=== PATIENT | female | born 1980 | race Caucasian/White ===

== ENCOUNTER 2017-04-02 10:10 | Inpatient (IN) | payer OTHER ==
[~2017-04-02 10:10] MED LIST: DEXTROSE 5%-LACTATED RINGERS 1,000 ML IV SCH
[2017-04-02 10:41] VITALS: BMI 25.2
[2017-04-02 11:30] LABS: BASOPHIL 0.2 % (0-2.0); EOSINOPHIL 2.3 % (0-4.5); MCH 26.1 pg (25.7-33.7); MCHC 33.3 g/dl (32.0-36.0); MEAN CELL VOLUME 78.5 fl (80-96); MEAN PLT VOLUME 10.7 fl (7.5-11.1); NEUTROPHILS 71.3 % (42.8-82.8); PLATELET COUNT 142 K/MM3 (134-434); RDW 14.1 % (11.6-15.6); WHITE BLOOD COUNT 7.8 K/mm3 (4.0-10.0)
[2017-04-02 11:48] LABS: INR 0.97 (0.82-1.09); PROTHROMBIN TIME (PATIENT) 10.7 SEC (9.98-11.88)
[2017-04-02 11:51] LABS: ACTIVATED PTT 27.3 SECONDS (26.9-34.4)
[2017-04-02 11:54] LABS: ANION GAP 7 (8-16); CALCIUM 8.4 mg/dL (8.5-10.1); CO2 21 mmol/L (21-32); CREATININE 0.5 mg/dL (0.55-1.02); GLUCOSE,RANDOM 95 mg/dL (74-106)
--- NOTE | 2017-04-02 12:22 | PN ---
Progress Note (short form) - Note Progress Note: cx 2 cm 50 vx -3 mi, fhr cat 1, cervidil rba discussed , cervidil inserted
[2017-04-02] MEDS ORDERED: PROMETHAZINE HCL 25 MG/1 ML VIAL IVPUSH ONE (12:23)
[2017-04-02] MEDS ORDERED: BUTORPHANOL TARTRATE 1 MG/ML VIAL IVPUSH PRN (12:23)
[2017-04-02] MEDS ORDERED: DINOPROSTONE 10 MG VAGINAL SUPPOSITORY VG ONE (12:24)
[2017-04-02] MEDS ORDERED: DEXTROSE 5%-LACTATED RINGERS 1,000 ML IV SCH ×2 (12:30→22:15)
--- NOTE | 2017-04-02 16:05 | HP ---
Past Medical History - Primary Care Physician PCP:: Matt Jay - Admission Chief Complaint: 40 weeks, AMA, multiparity,for cervidil induction History of Present Illness: 36 yo f 40.1 weeks admitted for cervidil induction , cx 2 cm 50 vx -3 mi, fhr cat 1, no contraction History Source: Patient Limitations to Obtaining History: No Limitations - Past Medical History ...: 4 ...Para: 3 ...Term: 3 ...: 0 ...Spon : 0 ...Induced : 0 ...Multiple Gestation: 0 ...LMP: 06/26/16 ... Weeks Gestation by Dates: 40.0 ...EDC by Dates: 04/02/17 ...EDC by Sono: 04/02/17 - Past Surgical History Hx Myomectomy: No Hx Transabdominal Cerclage: No - Smoking History Smoking history: Never smoked Have you smoked in the past 12 months: No - Alcohol/Substance Use Hx Alcohol Use: No - Social History Usual Living Arrangement: Yes: With Spouse History of Recent Travel: No Home Medications - Allergies Allergies/Adverse Reactions: Allergies Allergy/AdvReac Type Severity Reaction Status Date / Time No Known Allergies Allergy Verified 04/02/17 10:41 - Home Medications Home Medications: Ambulatory Orders Ferrous Sulfate 325 mg PO DAILY 04/02/17 Pnv95/Ferrous Fumarate/FA [ Vitamin Tablet] 1 each PO DAILY 04/02/17 Review of Systems - Review of Systems Constitutional: reports: No Symptoms Eyes: reports: No Symptoms HENT: reports: No Symptoms Neck: reports: No Symptoms Cardiovascular: reports: No Symptoms Respiratory: reports: No Symptoms Gastrointestinal: reports: No Symptoms Genitourinary: reports: No Symptoms Breasts: reports: No Symptoms Reported Musculoskeletal: reports: No Symptoms Neurological: reports: No Symptoms Endocrine: reports: No Symptoms Hematology/Lymphatic: reports: No Symptoms Psychiatric: reports: No Symptoms Physical Exam - Maternity Vital Signs: Vital Signs Temperature 97.6 F 04/02/17 10:10 Pulse Rate 18 L 04/02/17 10:10 Respiratory Rate 18 04/02/17 10:10 Blood Pressure 128/88 04/02/17 14:00 O2 Sat by Pulse Oximetry (%) Constitutional: Yes: Well Nourished, No Distress, Calm Eyes: Yes: WNL, Conjunctiva Clear, EOM Intact HENT: Yes: WNL, Atraumatic, Normocephalic Neck: Yes: WNL, Supple, Trachea Midline Cardiovascular: Yes: WNL, Regular Rate and Rhythm Breast(s): Yes: WNL - Abdominal Exam/OB Fundal Height: 40 Number of Fetuses: Single Presentation: Vertex Contractions: No Intensity: Unaware Monitor Mode: External Heart Rate Location: [facility] Category: I Accelerations: Uniform Decelerations: None - Vaginal Exam/OB Vaginal Bleediing: No Speculum Exam: No Dilatation (cm): 2 cm Effacement (%): 50 Amniotic Membrane Status: Intact Presentation: Vertex/Position Station: -3 - Physical Exam Extremities: Yes: WNL Edema: Yes Edema: LLE: Trace, RLE: Trace Deep Tendon Reflex Grade: Normal +2 Psychiatric: Yes: WNL - Labs Lab Results: CBC, BMP 04/02/17 10:58 04/02/17 10:58 Hemorrhage Risk Assessment - Risk Factors Medium Risk Factors: Yes: Multiple gestation Risk Score: 1 Risk Level: Medium Risk Assessment/Plan 40 weeks, ama, multiparty. favorable cx advised induction , rba discussed
--- NOTE | 2017-04-02 16:06 | PN ---
Progress Note (short form) - Note Progress Note: cx 6 cm 80 vx -1 membrane bulging, fhr cat 1, cervidil removed , arom ,clear.
[2017-04-02] MEDS ORDERED: BUTORPHANOL TARTRATE 1 MG/ML VIAL IVPUSH ONE (18:30)
--- NOTE | 2017-04-02 19:23 | PN ---
Progress Note (short form) - Note Progress Note: cx 9cm vx -1 head compression , fhr cat 2 will observe
--- NOTE | 2017-04-02 21:16 | PN ---
Progress Note (short form) - Note Progress Note: 820 cx full 100 vx -1fhr cat 1 contraction not effective for descent advised trial of pitocin
--- NOTE | 2017-04-02 21:17 | PN ---
Progress Note (short form) - Note Progress Note: cx full no descent with pushing , fhr cat 2 vx -1 op heat decel with pushing advised c/s, rba discussed
[2017-04-02] MEDS ORDERED: ONDANSETRON 4 MG/2 ML VIAL IVPB PRN (21:41)
[2017-04-02] MEDS ORDERED: IBUPROFEN 600 MG TABLET (FP) PO PRN (21:41)
[2017-04-02] MEDS ORDERED: oxyCODONE HCL 5 MG TABLET PO PRN ×2 (22:13)
[2017-04-02] MEDS ORDERED: diphenhydrAMINE HCL 25 MG CAPSULE (FP) PO PRN (22:13)
[2017-04-02] MEDS ORDERED: METHYLERGONOVINE MALEATE 0.2 MG/1 ML AMP IM PRN (22:13)
[2017-04-02] MEDS ORDERED: BENZOCAINE 20% 57 GM BOTTLE TP PRN (22:13)
[2017-04-02] MEDS ORDERED: WITCH HAZEL 50% (TUCKS) 40 PAD/JAR PAD TP PRN (22:13)
[2017-04-02] MEDS ORDERED: BENZOCAINE 28 GM HEMORRHOIDAL OINTMENT PR PRN (22:13)
[2017-04-02] MEDS ORDERED: IBUPROFEN 800 MG/8 ML IJ IVPB PRN (22:13)
[2017-04-02] MEDS ORDERED: OXYTOCIN 20 UNITS in 0.9% NS 1,000 ML IV SCH (22:15)
[2017-04-02] MEDS ORDERED: ACETAMINOPHEN 325 MG TABLET (FP) PO PRN (22:16)
[2017-04-02 22:34] LABS: ARTERIAL BLD GAS O2 SATURATION 39.5 % (90-98.9); ARTERIAL BLOOD GAS HCO3 21.4 meq/L (22-26); ARTERIAL BLOOD GAS pH 7.33 (7.35-7.45)
[2017-04-02 22:35] LABS: ARTERIAL BLOOD GAS PO2 18.8 mmHg (80-100)
[2017-04-02 22:39] LABS: ARTERIAL BLOOD GAS BASE EXCESS -4.1 meq/l (-2-2); ARTERIAL BLOOD GAS HCO3 23.2 meq/L (22-26)
[2017-04-02 22:40] LABS: ARTERIAL BLOOD GAS pH 7.26 (7.35-7.45)
[2017-04-02 22:41] LABS: ARTERIAL BLOOD GAS PO2 14.4 mmHg (80-100)
[2017-04-03] MEDS ORDERED: DEXTROSE 5%-WATER - 50 ML IVPB ONE ×2 (06:12→14:13)
[2017-04-03] MEDS ORDERED: ceFAZolin SODIUM 1 GM VIAL ONE ×2 (06:12→14:13)
[2017-04-03] MEDS: CEFAZOLIN 1 GM in DEXTROSE 5%-WATER - 50 ML IVPB SCH ×2 (06:17→14:36)
[2017-04-03 08:43] LABS: BASOPHIL 0.3 % (0-2.0); EOSINOPHIL 0.3 % (0-4.5); MCH 26.3 pg (25.7-33.7); MCHC 33.3 g/dl (32.0-36.0); MEAN CELL VOLUME 79.2 fl (80-96); MEAN PLT VOLUME 10.6 fl (7.5-11.1); NEUTROPHILS 75.1 % (42.8-82.8); PLATELET COUNT 120 K/MM3 (134-434); RDW 14.6 % (11.6-15.6); WHITE BLOOD COUNT 10.6 K/mm3 (4.0-10.0)
--- NOTE | 2017-04-03 09:50 | PN ---
Progress Note, Physician Chief Complaint: Pt. still has chiu, not ambulated yet, pain controlled, no anesthesia complaints. - Current Medication List Current Medications: Active Medications Acetaminophen (Tylenol -) 650 mg PO Q4H PRN PRN Reason: FEVER OR PAIN Acetaminophen (Tylenol -) 650 mg PO Q6H PRN PRN Reason: FEVER OR PAIN Benzocaine (Americaine 20% [place] -) 1 spray TP PRN PRN PRN Reason: PAIN Bisacodyl (Dulcolax Suppository -) 10 mg AR PRN PRN PRN Reason: CONSTIPATION Diphenhydramine HCl (Benadryl Injection -) 25 mg IVPUSH Q4H PRN PRN Reason: Pruritis Last Admin: 04/03/17 03:21 Dose: 25 mg Diphenhydramine HCl (Benadryl -) 25 mg PO Q8H PRN PRN Reason: FOR ITCHING Diphtheria/Tetanus/Acell Pertussis (Boostrix -) 0.5 ml IM .ONCE ONE Stop: 04/04/17 10:01 Ferrous Sulfate (Feosol -) 325 mg PO DAILY [facility] Cefazolin Sodium 1 gm/ (Dextrose) 50 mls @ 100 mls/hr IVPB Q8H MARIEL Stop: 04/03/17 14:29 Last Admin: 04/03/17 06:17 Dose: 100 mls/hr Dextrose/Lactated Ringer's (D5-Lr -) 1,000 mls @ 125 mls/hr IV ASDIR [facility] Ibuprofen (Motrin -) 600 mg PO Q4H PRN PRN Reason: PAIN Ibuprofen (Caldolor Injection -) 800 mg IVPB Q6H PRN PRN Reason: PAIN Stop: 04/03/17 10:14 Methylergonovine Maleate (Methergine Injection -) 0.2 mg IM Q4H PRN PRN Reason: EXCESSIVE BLEEDING Oxycodone HCl (Roxicodone -) 5 mg PO Q4H PRN PRN Reason: PAIN LEVEL 1-5 Oxycodone HCl (Roxicodone -) 10 mg PO Q4H PRN PRN Reason: PAIN LEVEL 6-10 Multivit/Folic Acid/Iron ( Vitamins (Sjr) -) 1 tab PO DAILY [facility] Senna/Docusate Sodium (Pericolace -) 2 tablet PO HS PRN PRN Reason: CONSTIPATION Simethicone (Mylicon -) 80 mg PO Q4H PRN PRN Reason: GAS [place]/Glycerin (Tucks Pads -) 1 pad TP PRN PRN PRN Reason: PAIN - Objective Vital Signs: Vital Signs Temperature 98.3 F 04/03/17 06:00 Pulse Rate 80 04/03/17 06:00 Respiratory Rate 18 04/03/17 06:00 Blood Pressure 108/68 04/03/17 06:00 O2 Sat by Pulse Oximetry (%) 100 04/02/17 23:56 Constitutional: Yes: Well Nourished, No Distress, Calm Musculoskeletal: Yes: WNL Neurological: Yes: WNL, Alert, Oriented ...Motor Strength: WNL Labs: CBC, BMP 04/03/17 08:15 04/02/17 10:58 INR, PTT INR 0.97 (0.82-1.09) 04/02/17 10:58 Assessment/Plan POD#1 s/p under spinal with duramorph. Doing well. D/C from anesthesia care.
[2017-04-03] MEDS: FERROUS SO4 325 MG TABLET (FP) PO SCH (10:40)
[2017-04-03] MEDS: PRENATAL VITAMINS W/ FOLIC ACID TABLET (FP) PO SCH (10:40)
--- NOTE | 2017-04-03 14:00 | PN ---
Post Progress Note Post Day: 1 Type of Delivery: Primary C/S Vital Signs: Vital Signs Temperature 97.9 F 04/03/17 10:00 Pulse Rate 74 04/03/17 10:00 Respiratory Rate 18 04/03/17 12:00 Blood Pressure 101/64 04/03/17 10:00 O2 Sat by Pulse Oximetry (%) 100 04/02/17 23:56 Breast Exam: Yes: Soft Uterus: Yes: Fundus Firm Incision: Yes: Dressing dry and intact Abdomen/GI: Yes: Abdomen soft Lochia: Yes: Rubra Lochia, amount: Small Extremities: Yes: Calves non-tender Perineum: Yes: Intact - Labs Labs: CBC WBC 10.6 K/mm3 (4.0-10.0) H D 04/03/17 08:15 RBC 3.42 M/mm3 (3.60-5.2) L D 04/03/17 08:15 Hgb 9.0 GM/dL (10.7-15.3) L D 04/03/17 08:15 Hct 27.1 % (32.4-45.2) L D 04/03/17 08:15 MCV 79.2 fl (80-96) L 04/03/17 08:15 MCH 26.3 pg (25.7-33.7) 04/03/17 08:15 MCHC 33.3 g/dl (32.0-36.0) 04/03/17 08:15 RDW 14.6 % (11.6-15.6) 04/03/17 08:15 Plt Count 120 K/MM3 (134-434) L 04/03/17 08:15 MPV 10.6 fl (7.5-11.1) 04/03/17 08:15 Neutrophils % 75.1 % (42.8-82.8) 04/03/17 08:15 Lymphocytes % 16.7 % (8-40) 04/03/17 08:15 Monocytes % 7.6 % (3.8-10.2) 04/03/17 08:15 Eosinophils % 0.3 % (0-4.5) D 04/03/17 08:15 Basophils % 0.3 % (0-2.0) 04/03/17 08:15 Assessment/Plan as above reg diet oob continue care
[2017-04-03] MEDS: IBUPROFEN 600 MG TABLET (FP) PO PRN (14:41)
[2017-04-03] MEDS: SIMETHICONE 80 MG TAB.CHEW (FP) PO PRN (14:41)
[2017-04-03] MEDS: ACETAMINOPHEN 325 MG TABLET (FP) PO PRN (14:43)
[2017-04-03] MEDS ORDERED: BISACODYL 10 MG SUPP.RECT PR PRN (22:13)
[2017-04-04] MEDS: ACETAMINOPHEN 325 MG TABLET (FP) PO PRN ×4 (05:42→21:22)
[2017-04-04] MEDS: IBUPROFEN 600 MG TABLET (FP) PO PRN ×4 (05:43→21:22)
[2017-04-04] MEDS: SIMETHICONE 80 MG TAB.CHEW (FP) PO PRN ×3 (09:39→21:23)
[2017-04-04] MEDS: PRENATAL VITAMINS W/ FOLIC ACID TABLET (FP) PO SCH (09:39)
[2017-04-04] MEDS: FERROUS SO4 325 MG TABLET (FP) PO SCH (09:39)
[2017-04-04] MEDS ORDERED: DIPHTH,PERTUSS(ACELL),TET 0.5 ML DISP.SYRIN IM ONE (10:00)
[2017-04-04] MEDS ORDERED: FLU VACC QS2017-18 36MOS UP/PF 60 MCG/0.5 ML SYRINGE IM ONE (10:00)
[2017-04-04] MEDS: SENNOSIDES/DOCUSATE COMBO (SENNA PLUS) TABLET (UD) PO PRN (21:22)
[2017-04-05] MEDS: IBUPROFEN 600 MG TABLET (FP) PO PRN ×3 (04:34→20:54)
[2017-04-05] MEDS: SIMETHICONE 80 MG TAB.CHEW (FP) PO PRN ×3 (04:34→20:50)
[2017-04-05] MEDS: ACETAMINOPHEN 325 MG TABLET (FP) PO PRN ×3 (04:34→20:52)
--- NOTE | 2017-04-05 06:55 | PN ---
Post Progress Note Post Day: 3 Type of Delivery: Primary C/S Vital Signs: Vital Signs Temperature 98.9 F 04/04/17 22:00 Pulse Rate 92 H 04/04/17 22:00 Respiratory Rate 18 04/04/17 22:00 Blood Pressure 131/82 04/04/17 22:00 O2 Sat by Pulse Oximetry (%) 100 04/02/17 23:56 Uterus: Yes: Fundus Firm Incision: Yes: [place] intact Abdomen/GI: Yes: Abdomen soft Lochia: Yes: Rubra Lochia, amount: Small Perineum: Yes: Intact Activity: Ambulating - Labs Labs: CBC WBC 10.6 K/mm3 (4.0-10.0) H D 04/03/17 08:15 RBC 3.42 M/mm3 (3.60-5.2) L D 04/03/17 08:15 Hgb 9.0 GM/dL (10.7-15.3) L D 04/03/17 08:15 Hct 27.1 % (32.4-45.2) L D 04/03/17 08:15 MCV 79.2 fl (80-96) L 04/03/17 08:15 MCH 26.3 pg (25.7-33.7) 04/03/17 08:15 MCHC 33.3 g/dl (32.0-36.0) 04/03/17 08:15 RDW 14.6 % (11.6-15.6) 04/03/17 08:15 Plt Count 120 K/MM3 (134-434) L 04/03/17 08:15 MPV 10.6 fl (7.5-11.1) 04/03/17 08:15 Neutrophils % 75.1 % (42.8-82.8) 04/03/17 08:15 Lymphocytes % 16.7 % (8-40) 04/03/17 08:15 Monocytes % 7.6 % (3.8-10.2) 04/03/17 08:15 Eosinophils % 0.3 % (0-4.5) D 04/03/17 08:15 Basophils % 0.3 % (0-2.0) 04/03/17 08:15 Assessment/Plan as above oob reg diet pain meds
--- NOTE | 2017-04-05 06:56 | PN ---
Post Progress Note Post Day: 3 Type of Delivery: Primary C/S Vital Signs: Vital Signs Temperature 98.9 F 04/04/17 22:00 Pulse Rate 92 H 04/04/17 22:00 Respiratory Rate 18 04/04/17 22:00 Blood Pressure 131/82 04/04/17 22:00 O2 Sat by Pulse Oximetry (%) 100 04/02/17 23:56 Breast Exam: Yes: Soft Uterus: Yes: Fundus Firm Incision: Yes: [place] intact Abdomen/GI: Yes: Abdomen soft Lochia: Yes: Rubra Lochia, amount: Small Extremities: Yes: Calves non-tender Perineum: Yes: Intact Activity: Ambulating - Labs Labs: CBC WBC 10.6 K/mm3 (4.0-10.0) H D 04/03/17 08:15 RBC 3.42 M/mm3 (3.60-5.2) L D 04/03/17 08:15 Hgb 9.0 GM/dL (10.7-15.3) L D 04/03/17 08:15 Hct 27.1 % (32.4-45.2) L D 04/03/17 08:15 MCV 79.2 fl (80-96) L 04/03/17 08:15 MCH 26.3 pg (25.7-33.7) 04/03/17 08:15 MCHC 33.3 g/dl (32.0-36.0) 04/03/17 08:15 RDW 14.6 % (11.6-15.6) 04/03/17 08:15 Plt Count 120 K/MM3 (134-434) L 04/03/17 08:15 MPV 10.6 fl (7.5-11.1) 04/03/17 08:15 Neutrophils % 75.1 % (42.8-82.8) 04/03/17 08:15 Lymphocytes % 16.7 % (8-40) 04/03/17 08:15 Monocytes % 7.6 % (3.8-10.2) 04/03/17 08:15 Eosinophils % 0.3 % (0-4.5) D 04/03/17 08:15 Basophils % 0.3 % (0-2.0) 04/03/17 08:15 Assessment/Plan oob reg pain will dc home
[2017-04-05 07:14] LABS: BASOPHIL 0.5 % (0-2.0); EOSINOPHIL 5.2 % (0-4.5); MCH 25.9 pg (25.7-33.7); MCHC 32.4 g/dl (32.0-36.0); MEAN PLT VOLUME 10.1 fl (7.5-11.1); NEUTROPHILS 69.9 % (42.8-82.8); PLATELET COUNT 115 K/MM3 (134-434); RDW 14.6 % (11.6-15.6); WHITE BLOOD COUNT 7.8 K/mm3 (4.0-10.0)
[2017-04-05] MEDS: FERROUS SO4 325 MG TABLET (FP) PO SCH ×2 (09:44→10:58)
[2017-04-05] MEDS: PRENATAL VITAMINS W/ FOLIC ACID TABLET (FP) PO SCH (09:45)
[2017-04-05] MEDS: SENNOSIDES/DOCUSATE COMBO (SENNA PLUS) TABLET (UD) PO PRN (20:54)
[2017-04-06] MEDS: SIMETHICONE 80 MG TAB.CHEW (FP) PO PRN ×2 (00:51→06:16)
[2017-04-06] MEDS: ACETAMINOPHEN 325 MG TABLET (FP) PO PRN ×2 (00:52→06:17)
[2017-04-06] MEDS: IBUPROFEN 600 MG TABLET (FP) PO PRN ×2 (00:53→06:18)
--- NOTE | 2017-04-06 09:16 | DS ---
Physical Exam-HOME HEALTH CAREGIVER Vital Signs: Vital Signs Temperature 98.9 F 04/05/17 22:00 Pulse Rate 64 04/05/17 22:00 Respiratory Rate 18 04/05/17 22:00 Blood Pressure 139/85 04/05/17 22:00 O2 Sat by Pulse Oximetry (%) 100 04/02/17 23:56 Constitutional: Yes: Well Nourished Eyes: Yes: Conjunctiva Clear HENT: Yes: Atraumatic Neck: Yes: Supple, Trachea Midline Cardiovascular: Yes: Regular Rate and Rhythm Respiratory: Yes: Regular, CTA Bilaterally Gastrointestinal: Yes: Normal Bowel Sounds Pelvis: Yes: WNL External Genitalia: Yes: Normal Vaginal Exam: Yes: Normal Labs: CBC, BMP 04/05/17 06:50 04/02/17 10:58 Delivery - Delivery Type of Anesthesia: Spinal Episiotomy/Laceration: None EBL (cc): 500 Delivery, Single - Stages of Labor Date 1st Stage Initiatied: 04/02/17 Time 1st Stage Initiated: 17:35 Date of Delivery: 04/02/17 Time of Delivery: 21:39 Time Placenta Delivered: 21:40 - Condition of Hearing Aid Technician/Phototypesetting Equipment Monitor Present: No Gender: Male Weight: 7 lb 2 oz Position: OP Total Hours ROM (Hrs/Mins): 5 HOURS/39 MINUTES - 5 Minutes Total Score: 9 - Feeding Plan Initial Plan: Elected not to breastfeed exclusively throughout hospitalization Discharge Summary Reason For Visit: INDUCTION OF LABOR Procedures: Principal: Delivery by Hospital Course: Routine post op care Condition: Good - Instructions Diet, Activity, Other Instructions: Regular diet No driving, no lifting x 4 weeks F/U in clinic for jose de jesus removal Referrals: Matt Jay MD [Staff Physician] - Disposition: HOME - Home Medications Comprehensive Discharge Medication List: Ambulatory Orders Ferrous Sulfate 325 mg PO DAILY 04/02/17 Pnv95/Ferrous Fumarate/FA [ Vitamin Tablet] 1 each PO DAILY 04/02/17 Ibuprofen [Motrin -] 600 mg PO TID #21 tablet 04/05/17
--- NOTE | 2017-04-06 09:17 | OP ---
DATE OF OPERATION: 04/02/2017 PREOPERATIVE DIAGNOSES: , 40 weeks, Cervidil induction, failure of descent in second stage of labor, and nonreassuring heart rate. POSTOPERATIVE DIAGNOSES: , 40 weeks, Cervidil induction, failure of descent in second stage of labor, and nonreassuring heart rate. PROCEDURE: Primary low-segment transverse section. SURGEON: Matt Jay MD CHEMICAL MACHINE TENDER: Janet Mata MD ANESTHESIA: Spinal. ANESTHESIOLOGIST: Denver Montoya MD ESTIMATED BLOOD LOSS: 700 mL DESCRIPTION OF OPERATION: Patient was taken to the operating room. Under adequate spinal anesthesia, abdomen and perineum were prepped and draped. Pfannenstiel abdominal skin incision was made. Abdominal wall was cut layer by layer until peritoneum was exposed and incised. Upon entering the abdominal cavity, lower uterine segment was identified and uterovesical fold of peritoneum established. Bladder was pushed down, and then, a low transverse uterine incision was made. This incision extended laterally. Amniotic sac was entered, clear fluid. Head delivered from direct occiput posterior position. Nasopharynx was suctioned. Live baby was delivered without any difficulty. Placenta was delivered manually. Uterine cavity was cleaned of all remaining tissue. Uterine incision was closed in 2 layers, first layer with 0 Biosyn continuous suture, the second layer with 0 Biosyn imbricating the first layer. Bladder flap was closed with 0 Biosyn continuous suture. Both tubes and ovaries were checked, were normal. No active bleeding was seen. All the lap pads, sponge, and instrument counts were correct. Then, peritoneum was closed with 0 Biosyn continuous suture. Muscles were brought together with interrupted sutures of 0 Biosyn, and fascia was closed with 0 Biosyn continuous suture, subcutaneous fat with interrupted suture of 0 Biosyn, and the skin was closed with jose de jesus. Patient tolerated the procedure well, left the OR in good condition. Kishore [id number]
[2017-04-06] MEDS: FERROUS SO4 325 MG TABLET (FP) PO SCH (09:24)
[2017-04-06] MEDS: PRENATAL VITAMINS W/ FOLIC ACID TABLET (FP) PO SCH (09:24)
[2017-04-06 10:21] VITALS: PULSE 54; TEMP 98.1
[2017-04-06 10:52] VITALS: BP 146/87
--- NOTE | 2017-04-07 14:02 | PATH ---
Surgical Pathology Report Patient Name: MAINOR PHELAN Med. Rec. #: [id number] /Age/Gender: 1980 (Age: 36) / F Account: [id number] Location: [facility] OBS/DELIVERER FOOD Taken: 04/02/2017 Received: 04/05/2017 Reported: 04/07/2017 Physicians: Matt Jay M.D. Specimen(s) Received PLACENTA Clinical History 36-year-old female , failure to descend Final Diagnosis PLACENTA, DELIVERY: SMALL (374 gram) FOCALLY DISRUPTED THIRD TRIMESTER PLACENTA WITH THREE VESSEL UMBILICAL CORD AND UNREMARKABLE PLACENTAL MEMBRANES. Electronically Signed Bright Rubin M.D. Gross Description The specimen is received fresh labeled placenta and is a 374 gram, 15.0 x 15.0 x 2.5 cm. placenta with attached membranes and umbilical cord. The attached membranes are xiong, thick, opaque and insert marginally. The umbilical cord measures 21 cm. in length and averages 1.2 cm. in diameter. The cord inserts eccentrically, 2 cm. to the nearest margin. No true knots or strictures are identified. Cut surface of the umbilical cord reveals 3 vessels. The surface is colvin-blue with minimal fibrin deposition and appropriate caliber vessels. The maternal surface is red-brown with focal defects. Sectioning reveals a 1 cm in greatest dimension hemorrhagic lesion. The remaining placental parenchyma is red-brown and spongy. Blocking Machine Operator Second sections are submitted in 4 cassettes as follows: 1-membrane roll and umbilical cord; 2-lesion; 2-7-gtly-thickness sections of placenta. 04/06/2017 [facility]04/06/2017
== END 2017-04-06 11:10 | disposition home or self-care (01) | DRG 540 ==
LOC: JLDR 10:10 → J3W 04-03 00:30
PROVIDERS: ADMIT Obstetrics & Gynecology; ATTEND Obstetrics & Gynecology
PROC: 10D00Z1 Extraction of Products of Conception, Low, Open Approach (ICD-10-PCS; principal; 2017-04-02)
DX: O76 Abnormality in fetal heart rate and rhythm complicating labor and delivery (principal); O62.0 Primary inadequate contractions; O48.0 Post-term pregnancy; Z3A.40 40 weeks gestation of pregnancy; Z37.0 Single live birth
CPT/HCPCS: 36415; 36600; 80048; 82803; 85025; 85610; 85730; 86593; 86850; 86900; 86901; 88307-TC; 90686; 90715; G0008

== ENCOUNTER 2020-12-29 09:33 | Emergency (ER) | payer OTHER ==
[2020-12-29 09:40] VITALS: BP 161/90; PULSE 76; TEMP 98; BMI 24.7
[2020-12-29] MEDS ORDERED: KETOROLAC TROMETHAMINE 30 MG/1 ML VIAL IM ONE (10:17)
[2020-12-29] MEDS ORDERED: KETOROLAC TROMETHAMINE 30 MG/1 ML VIAL ONE (10:26)
== END 2020-12-29 11:15 | disposition home or self-care (01) ==
LOC: JERFT 09:33
PROC: 3E0233Z Introduction of Anti-inflammatory into Muscle, Percutaneous Approach (ICD-10-PCS; principal; 2020-12-29)
DX: G56.02 Carpal tunnel syndrome, left upper limb (principal)
CPT/HCPCS: 99284-25

== ENCOUNTER 2023-05-21 12:13 | Observation (INO) | payer OTHER ==
[2023-05-21 12:49] LABS: EPI CELLS 14 /uL (0-25.1); HYALINE CASTS 1 /uL (0-3.1); PH,URINE 6.5 (5.0-8.0); URINE APPEARANCE CLEAR; URINE BACTERIA 1 /uL (0-1359); URINE BILIRUBIN NEGATIVE (NEGATIVE); URINE COLOR RED; URINE GLUCOSE (UA) NEGATIVE (NEGATIVE); URINE KETONE NEGATIVE (NEGATIVE); URINE LEUK ESTERASE 1+ (NEGATIVE); URINE NITRITE NEGATIVE (NEGATIVE); URINE PROTEIN 2+ (NEGATIVE); URINE RBC 1440 /uL (0-23.9); URINE UROBILINOGEN 0.2 mg/dL (0.2-1.0); URINE WBC 25 /uL (0-25.8)
[2023-05-21] MEDS ORDERED: SODIUM CHLORIDE 0.9% 500 ML INFUS.BAG IV ONE (12:52)
[2023-05-21 12:53] LABS: BASO % 1.1 % (0-2.0); EOS % 2.3 % (0-4.5); HEMATOCRIT 19.5 % (32.4-45.2); LYMPH % 39.7 % (8-40); MCHC 28.3 g/dl (32.0-36.0); MEAN CELL VOLUME 53.4 fl (80-96); MEAN PLT VOLUME 8.6 fl (7.5-11.1); MONO % 8.3 % (3.8-10.2); NEUT % 48.6 % (42.8-82.8); PLATELET COUNT 212 10^3/uL (134-434); RBC 3.64 M/mm3 (3.60-5.2); RDW 21.4 % (11.6-15.6); WHITE BLOOD COUNT 5.1 K/mm3 (4.0-10.0)
[2023-05-21 12:54] LABS: MCH 15.1 pg (25.7-33.7)
[2023-05-21 12:56] LABS: HEMOGLOBIN 5.5 GM/dL (10.7-15.3)
[2023-05-21 13:12] LABS: PLATELET ESTIMATE ADEQUATE
[2023-05-21 13:14] LABS: ANISOCYTOSIS 3+; MACROCYTOSIS 0
[2023-05-21 13:21] LABS: BLOOD UREA NITROGEN 6.8 mg/dL (7-18); CALCIUM 8.9 mg/dL (8.5-10.1)
[2023-05-21 13:24] LABS: CREATININE 0.6 mg/dL (0.55-1.3)
[2023-05-21 13:26] LABS: BILIRUBIN,TOTAL 0.3 mg/dL (0.2-1); TOT PROT 7.4 g/dl (6.4-8.2)
[2023-05-21 14:40] LABS: ACTIVATED PTT 28.4 SECONDS (25.2-36.5); INR 1.05 (0.83-1.09); PROTHROMBIN TIME (PATIENT) 12.2 SEC (9.7-13.0)
[2023-05-21] MEDS ORDERED: ACETAMINOPHEN 325 MG TABLET (FP) PO PRN (17:01)
[2023-05-21 18:38] VITALS: BMI 23.3
[2023-05-21] MEDS: MELATONIN 1 MG TABLET PO SCH (21:25)
[2023-05-22 09:02] LABS: HEMATOCRIT 25.5 % (32.4-45.2); HEMOGLOBIN 7.7 GM/dL (10.7-15.3); MCHC 30.1 g/dl (32.0-36.0); MEAN CELL VOLUME 62.1 fl (80-96); MEAN PLT VOLUME 9.4 fl (7.5-11.1); PLATELET COUNT 206 10^3/uL (134-434); RDW 30.6 % (11.6-15.6); WHITE BLOOD COUNT 5.5 K/mm3 (4.0-10.0)
[2023-05-22 09:05] LABS: MCH 18.7 pg (25.7-33.7)
[2023-05-22 09:53] LABS: CALCIUM 8.5 mg/dL (8.5-10.1)
[2023-05-22 09:54] LABS: BLOOD UREA NITROGEN 9.9 mg/dL (7-18); CREATININE 0.6 mg/dL (0.55-1.3); MAGNESIUM 2.2 mg/dL (1.8-2.4); PHOSPHOROUS 3.6 mg/dL (2.5-4.9)
[2023-05-22] MEDS: MELATONIN 1 MG TABLET PO SCH (22:41)
[2023-05-23 06:46] VITALS: RESP 16
[2023-05-23 07:53] LABS: BASO % 1.4 % (0-2.0); EOS % 4.7 % (0-4.5); HEMATOCRIT 32.6 % (32.4-45.2); HEMOGLOBIN 10.5 GM/dL (10.7-15.3); LYMPH % 27.1 % (8-40); MCH 21.2 pg (25.7-33.7); MCHC 32.1 g/dl (32.0-36.0); MEAN CELL VOLUME 65.9 fl (80-96); MEAN PLT VOLUME 9.2 fl (7.5-11.1); MONO % 7.7 % (3.8-10.2); NEUT % 59.1 % (42.8-82.8); PLATELET COUNT 176 10^3/uL (134-434); RBC 4.95 M/mm3 (3.60-5.2); RDW 32.6 % (11.6-15.6); WHITE BLOOD COUNT 7.3 K/mm3 (4.0-10.0)
[2023-05-23 09:34] VITALS: BP 134/8; PULSE 75; TEMP 98.1
== END 2023-05-23 12:00 | disposition home or self-care (01) ==
LOC: JER 12:13 → JERBED 16:00 → J7W 18:19
PROVIDERS: ADMIT Internal Medicine; ATTEND Internal Medicine
PROC: 30233N1 Transfusion of Nonautologous Red Blood Cells into Peripheral Vein, Percutaneous Approach (ICD-10-PCS; principal; 2023-05-21)
DX: N93.9 Abnormal uterine and vaginal bleeding, unspecified (principal); R00.0 Tachycardia, unspecified; D64.89 Other specified anemias
CPT/HCPCS: 36415; 36430; 76856-TC; 80048; 80053; 81003; 82728; 83540; 83550; 83735; 84100; 84443; 84703; 85025; 85027; 85610; 85730; 86922; 87086; 93005; 93010; 99285-25; G0378; P9058